=== PATIENT | female | born 1985 | race Asian ===

== ENCOUNTER 2020-12-10 12:19 | Emergency (ER) | payer OTHER ==
[~2020-12-10] VITALS: Ht 160 cm; Wt 78.0 kg
[2020-12-10] MEDS ORDERED: ACETAMINOPHEN500 MG PO (12:47)
[2020-12-10] MEDS ORDERED: DOXYCYCLINE HY100 MG PO (12:47)
[2020-12-10] MEDS ORDERED: SODIUM CHLORIDE 0.9% 1000ML 1,000 ML IV STA (12:59)
[2020-12-10] MEDS ORDERED: SODIUM CHLORIDE 0.9% 1000ML 1,000 ML ONE (13:43)
[2020-12-10] MEDS ORDERED: SODIUM CHLORIDE 0.9% 50ML 50 ML ONE (13:51)
[2020-12-10] MEDS ORDERED: IOPAMIDOL 370 MG/ML 200 ML INFUS..BTL INJ ONE (13:51)
[2020-12-10] MEDS ORDERED: ENOXAPARIN INJ 80 MG/0.8 ML SYR SC STA (16:00)
[2020-12-10] MEDS ORDERED: ELIQUIS5 MG PO (16:03)
[2020-12-10] MEDS ORDERED: ENOXAPARIN SODIUM INJ 100 MG/ML SYR SC ONE (16:11)
[2020-12-10 16:41] VITALS: BP 130/78
== END 2020-12-10 16:45 | disposition home or self-care (01) ==
LOC: FSED 12:38
DX: I82.432 Acute embolism and thrombosis of left popliteal vein (principal); M79.662 Pain in left lower leg; R07.89 Other chest pain
CPT/HCPCS: 71260; 80053; 82553; 84484; 85025; 93005; 93971; 99284; J1650; J7030; Q9967